=== PATIENT | male | born 1950 | race Caucasian/White ===

== ENCOUNTER → 2017-05-06 | Outpatient (CLI) | payer OTHER, BC | END | disposition home or self-care (01) | LOC: C.RDSM 12:15 | PROVIDERS: ATTEND Orthopaedic Surgery Sports Medicine | DX: R52 Pain, unspecified (principal) ==

== ENCOUNTER → 2017-08-15 | Outpatient (CLI) | payer OTHER, BC ==
--- NOTE | 2017-08-15 11:43 | DIAGNOSTIC IMAGING REPORT ---
LUMBAR SPINE MIN 4 VIEWS CLINICAL HISTORY: 67 years-old Male presenting with LBP. TECHNIQUE: Frontal, bilateral oblique, lateral, and coned in lateral views lumbar spine were obtained. COMPARISON: None. FINDINGS: Normal lumbar lordosis. Vertebral bodies maintain normal height and alignment. Mild intervertebral disc height loss at L5-S1. Mild multilevel degenerative changes. No radiographic evidence of compression deformity or subluxation. Stent projects over the upper abdomen. Nonobstructive bowel gas pattern. IMPRESSION: Mild multilevel degenerative changes. No radiographic evidence of acute osseous injury. Electronically signed by: Noman Walton M.D. 08/15/2017 11:41 AM Dictated Date/Time: 08/15/2017 11:40 AM
== END | disposition home or self-care (01) ==
LOC: C.RDSM 15:47
PROVIDERS: ATTEND Family Medicine
DX: M54.5 Low back pain (principal)

== ENCOUNTER → 2017-11-16 | Day surgery (SDC) | payer OTHER, BC ==
[2017-10-11 08:55] VITALS: Ht 180.3 cm; Wt 65.9 kg
[~2017-11-16] VITALS: Ht 180.3 cm; Wt 65.9 kg
[~2017-11-16] MED LIST: ALPR-411 PO; ASPI81TA28 PO; BUPIVACAINE 0.25% 2.5MG/ML PF 10 ML VIAL ONE; BUPR-83 PO; CETI10TA84 PO; CLOP1TAB54 PO; CZR25 PO; FLUT1AER5 INH; FLUT50SP45 NAE; GABA-113 PO; LIDOCAINE HCL 1% MPF 5 ML VIAL ONE; MIDODRINE PO; PANT40TA PO; RANI150T85 PO; SNG10 PO; TRML160 TOP; VNTHFA/IN INH; ZOLE5INJ IV
--- NOTE | 2017-11-16 14:01 | History & Physical Bridge - SC ---
H&P Re-Evaluation Bridge Note: I have examined the patient, reviewed the History & Physical and in the interval since the performance of the History & Physical I have noted the following changes of clinical significance: No changes noted
--- NOTE | 2017-11-16 14:19 | [facility] Post Operative Brief Note ---
Immediate Operative Summary Operative Date Nov 16, 2017. Pre-Operative Diagnosis Chronic low back pain, left foot numbness Post-Operative Diagnosis Chronic low back pain, left foot numbness Procedure(s) Performed Left L5-S1 medial branch block Surgeon Dr. Ruth Ayala [employer] Manager Surgeon(s) None Estimated Blood Loss None Findings Consistent with Post-Op Diagnosis Specimens NA Drains None Anesthesia Type Local Complication(s) none Disposition Disposition:
--- NOTE | 2017-11-16 14:20 | Discharge Instructions ---
Discharge Instructions Date of Service Nov 16, 2017. Visit Reason for Visit: Low Back Pain Discharge Discharge Diagnosis / Problem: Low back pain Discharge Goals Goal(s): Decrease discomfort, Improve function Activity Recommendations Activity Limitations: resume your previous activity Anesthesia . Post Anesthesia Instructions: If you have had General Anesthesia or IV Sedation: * Do not drive today. * Resume driving when surgeon permits. * Do not make important decisions or sign legal documents today. * Call surgeon for: 1. Temperature elevations greater than 101 degrees F. 2. Uncontrollable pain. 3. Excessive bleeding. 4. Persistent nausea and vomiting. 5. Medication intolerance (nausea, vomiting or rash). * For nausea and vomiting use only clear liquids such as: tea, soda, bouillon until nausea subsides, then gradually increase diet as tolerated. * If you have any concerns or questions, call your surgeon's office. If physician is unavailable and it is an emergency, call 911 or go to the nearest emergency room. . Diet Recommendations Recommended Home Diet: resume previous diet Procedures Procedures Performed: Left L5-S1 medial branch block Pending Studies Studies pending at discharge: no Medical Emergencies . Who to Call and When: Medical Emergencies: If at any time you feel your situation is an emergency, please call 911 immediately. . Non-Emergent Contact Non-Emergency issues call your: Specialist . . "Provider Documentation" section prepared by Chele Ayala. .
[2017-11-16 14:21] VITALS: TEMP 36.6
[2017-11-16 14:42] VITALS: BP 118/71; PULSE 84; O2SAT 99
--- NOTE | 2017-11-16 14:49 | OPERATIVE REPORT ---
DATE OF OPERATION: 11/16/2017 PREOPERATIVE DIAGNOSES: Chronic low back pain, suspected L5-S1 facet arthropathy, lumbar spondylosis. POSTOPERATIVE DIAGNOSES: Same. PROCEDURE: Left L5-S1 medial branch blocks. INDICATIONS: The patient is a 67-year-old male that was seen for chronic low back pain. He describes 2 areas of problem, one is pain that he locates with 1 finger the L5-S1 facet on the left side, worse with prolonged sitting and prolong standing and presented today to determine if this is indeed a pain generator at the facet level at that area, which showed some arthritic changes and fluid signal on MRI imaging. PHYSICAL EXAMINATION: Pleasant male seated comfortably. He has no focal weakness. Negative seated straight leg raises and the proximal muscles of the abductor hallucis strength was reduced to 4-/5. CONSENT: Verbal and written consent was obtained from the patient. Risks and benefits were reviewed. Risks include but are not limited to abscess and allergic reaction. He wishes to proceed. DESCRIPTION OF PROCEDURE: The patient was taken back in the special procedures room of the [facility] where he was maintained in a prone position. Backside was cleansed with Betadine x3 and a dry sterile dressing was applied. Fluoroscope was used to identify the left L5 transverse process junction and the left sacral ala. The overlying skin was anesthetized with 2.5 mL of lidocaine 1% with a 25-gauge 1.5-inch needle. A 25-gauge 3.5-inch spinal needle was then directed under fluoroscopic guidance contacting bony targets at each site was then injected with 1 mL of bupivacaine 0.25 at each site. The patient tolerated the procedure well. DISPOSITION: 1. The patient is taken out into the discharge recovery area where he will be discharged home once discharge criteria have been met. 2. Follow up in the [facility] office in 4 weeks' time. The patient has been educated to keep a pain diary for the next 2 days to determine if this makes a difference or an improvement in his symptoms and pain. I attest to the content of the Intraoperative Record and any orders documented therein. Any exception s are noted below.
== END | disposition home or self-care (01) ==
LOC: X.SURG 12:51
PROVIDERS: ATTEND Physical Medicine & Rehabilitation
DX: M54.5 Low back pain (principal); M47.816 Spondylosis without myelopathy or radiculopathy, lumbar region; G89.29 Other chronic pain; R20.0 Anesthesia of skin

== ENCOUNTER → 2018-01-05 | Day surgery (SDC) | payer OTHER, BC ==
[2017-12-23 15:05] VITALS: Ht 180.3 cm; Wt 63.6 kg
[~2018-01-05] VITALS: Ht 180.3 cm; Wt 63.6 kg
[~2018-01-05] MED LIST changes: -BUPIVACAINE 0.25% 2.5MG/ML PF 10 ML VIAL ONE; -GABA-113 PO; +GABA100C13 PO; +GABA400C PO; +IOPAMIDOL INJ 61% 15 ML VIAL ONE; +SODIUM CHLORIDE 0.9% INJ 10 ML VIAL ONE
--- NOTE | 2018-01-05 13:36 | [facility] Post Operative Brief Note ---
Immediate Operative Summary Operative Date Jan 05, 2018. Pre-Operative Diagnosis Left low back pain Right L5 Radicular pain Post-Operative Diagnosis Same Procedure(s) Performed Lumbar Epidural Steroid Injection Surgeon Dr Chele Ayala Inspector And Sorter Surgeon(s) None Estimated Blood Loss 0 Findings Consistent with Post-Op Diagnosis Specimens NA Drains None Anesthesia Type Local Complication(s) none Disposition Accompanied Pt To Recovery: Disposition:
--- NOTE | 2018-01-05 13:37 | Discharge Instructions ---
Discharge Instructions Date of Service Jan 05, 2018. Visit Reason for Visit: Lumbar Radiculopathy Discharge Discharge Diagnosis / Problem: right leg pain Discharge Goals Goal(s): Decrease discomfort, Improve function Medications Stopped Medications Name(s): ASA/PLAVIX STOPPED 1 WEEK AGO Activity Recommendations Activity Limitations: resume your previous activity Anesthesia . Post Anesthesia Instructions: If you have had General Anesthesia or IV Sedation: * Do not drive today. * Resume driving when surgeon permits. * Do not make important decisions or sign legal documents today. * Call surgeon for: 1. Temperature elevations greater than 101 degrees F. 2. Uncontrollable pain. 3. Excessive bleeding. 4. Persistent nausea and vomiting. 5. Medication intolerance (nausea, vomiting or rash). * For nausea and vomiting use only clear liquids such as: tea, soda, bouillon until nausea subsides, then gradually increase diet as tolerated. * If you have any concerns or questions, call your surgeon's office. If physician is unavailable and it is an emergency, call 911 or go to the nearest emergency room. . Diet Recommendations Recommended Home Diet: resume previous diet Procedures Procedures Performed: Lumbar Epidural Steroid Injection Pending Studies Studies pending at discharge: no Medical Emergencies . Who to Call and When: Medical Emergencies: If at any time you feel your situation is an emergency, please call 911 immediately. . Non-Emergent Contact Non-Emergency issues call your: Specialist . . "Provider Documentation" section prepared by Chele Ayala. .
[2018-01-05 13:41] VITALS: TEMP 37.6
[2018-01-05 13:53] VITALS: BP 157/89; PULSE 93; O2SAT 98
--- NOTE | 2018-01-05 14:42 | OPERATIVE REPORT ---
DATE OF OPERATION: 01/05/2018 PREOPERATIVE DIAGNOSIS: L4-L5 foraminal stenosis with right greater than left lower extremity radiculopathies. POSTOPERATIVE DIAGNOSES: Same. PROCEDURE: Right paramedian L5-S1 intralaminar epidural steroid injection under fluoroscopic guidance. INDICATIONS: The patient is a 67-year-old white male who had medial branch blocks and had relief of the back pain; however, he recently developed a radicular pain down the predominantly right leg. It is felt to be related to multifactorial stenosis at L4-L5. Presents today for an epidural injection to provide him with relief of radicular pain that he notes. PHYSICAL EXAMINATION: Pleasant male seated comfortably. He is without any weakness with the exception of the hip flexor, which is 5-/5 positive seated straight leg raise and intact sensation distally L4-L5-S1 dermatomes. CONSENT: Verbal and written consent was obtained from the patient. Risks and benefits were reviewed. Risks include but are not limited to epidural abscess, epidural hematoma, allergic reaction, dural puncture. The patient wishes to proceed. PROCEDURE: The patient was taken back to the special procedures room of the [facility] where he was maintained in a prone position. Backside was cleansed with Betadine x3 and a dry sterile dressing was applied. Fluoroscope was used to identify the L5-S1 intralaminar space on the right. The L4-L5 space was very tight and narrow. Overlying skin at 5-1 was anesthetized with 4 mL of lidocaine 1% with a 25 gauge 1.5-inch needle. A 22-gauge 3.5-inch Tuohy needle was then directed down towards the intralaminar space. It was advanced under lateral fluoroscopic guidance. Loss of resistance was noted at a depth of 4.5 cm. Isovue-300 contrast 1 mL was injected in which demonstrated an epidural uptake pattern which was confirmed with a lateral view. He then underwent injection after negative aspiration of 40 mg Depo-Medrol, 4 mL of preservative free sodium chloride. Injection was well tolerated. DISPOSITION: The patient is taken out into the discharge recovery area where he will be discharged home once discharge criteria have been met. I attest to the content of the Intraoperative Record and any orders documented therein. Any exception s are noted below.
== END | disposition home or self-care (01) ==
LOC: X.SURG 12:30
PROVIDERS: ATTEND Physical Medicine & Rehabilitation
DX: M48.061 Spinal stenosis, lumbar region without neurogenic claudication (principal); M54.16 Radiculopathy, lumbar region

== ENCOUNTER 2019-08-01 14:08 | Inpatient (IN) ==
[2019-08-01] MEDS ORDERED: DIAZEPAM 5 MG/ML INJ 10ML VIAL IV STA (14:27)
[2019-08-01] MEDS ORDERED: ONDANSETRON INJ 2 MG/ML 2 ML VIAL IV STA (14:27)
[2019-08-01] MEDS ORDERED: SODIUM CHLORIDE 0.9% 500 ML IV SCH (14:30)
[2019-08-01 14:51] LABS: Basophils # (auto) 0.05 K/uL (0-0.2); Basophils % (auto) 0.8 %; Eosinophils # (auto) 0.09 K/uL (0-0.5); Eosinophils % (auto) 1.5 %; Hematocrit (blood only) 41.4 % (42-52); Hemoglobin 13.9 g/dL (14.0-18.0); Immature Granulocytes # (auto) 0.01 K/uL (0.00-0.02); Immature Granulocytes % (auto) 0.2 %; Lymphocytes # (auto) 1.29 K/uL (1.2-3.4); Mean Corpuscular Hemoglobin 29.8 pg (25-34); Mean Corpuscular Hgb Conc 33.6 g/dL (32-36); Mean Corpuscular Volume 88.7 fL (80-100); Mean Platelet Volume 10.1 fL (7.4-10.4); Monocytes # (auto) 0.71 K/uL (0.11-0.59); Monocytes % (auto) 11.6 %; Neutrophils # (auto) 3.98 K/uL (1.4-6.5); Neutrophils % (auto) 64.9 %; Platelet Count 201 K/uL (130-400); RDW Coefficient of Variation 13.8 % (11.5-14.5); RDW Standard Deviation 44.7 fL (36.4-46.3); Red Blood Count 4.67 M/uL (4.7-6.1); White Blood Count 6.13 K/uL (4.8-10.8)
--- NOTE | 2019-08-01 14:52 | XRay Report ---
XR chest 1V portable CLINICAL HISTORY: weakness COMPARISON STUDY: No previous studies for comparison. FINDINGS: The heart is normal in size. There is bilateral reticulonodular shadowing with clustered ri ght upper lung zone nodules measuring 1 cm neck. There is no overt failure. There are no pleural effu sions.[ IMPRESSION: Nonspecific clustered right upper lung zone nodules. In the absence of prior radiographs, CT scanning should be considered in follow-up. Electronically signed by: Ramez Castellanos M.D. 08/01/2019 2:51 PM
[2019-08-01 15:00] LABS: Partial Thromboplastin Time 26.5 Seconds (21.0-31.0); Prothrombin Time 10.6 Seconds (9.0-12.0)
[2019-08-01 15:11] LABS: Albumin Level 3.6 gm/dl (3.4-5.0); BUN Creatinine Ratio 19.6 (10-20); Calcium 9.3 mg/dl (8.5-10.1); Creatinine Clr Calc Pharmacy 61.2 ml/min; Est GFR (African American) 79.6; Est GFR (Non-African American) 68.7; Potassium 3.4 mmol/L (3.5-5.1)
[2019-08-01 15:22] LABS: Bilirubin,Total 0.5 mg/dl (0.2-1); Globulin 3.7 gm/dl (2.5-4.0); Thyroid Stimulating Hormone 4.22 uIu/ml (0.300-4.500); Total Protein 7.3 gm/dl (6.4-8.2)
[2019-08-01 15:56] LABS: iSTAT Creatinine 1.1 mg/dl (0.6-1.3); iSTAT Hemoglobin 13.9 g/dl (14.0-18.0); iSTAT Ionized Calcium 1.12 mmol/l (1.12-1.32); iSTAT Potassium 3.4 mEq/L (3.3-5.0)
[2019-08-01] MEDS ORDERED: OPTIRAY 320 125ml IV PRN ×2 (16:16→16:40)
--- NOTE | 2019-08-01 16:29 | CT Scan Report ---
CT head/brain wo con CT DOSE: HISTORY: Mental status change vertigo TECHNIQUE: Multiaxial CT images of the head were performed without the use of intravenous contrast. A dose lowering technique was utilized adhering to the principles of ALARA. Comparison: None. Findings: The paranasal sinuses and mastoid air cells are clear. The calvarium and skull base are int act. The ventricles and sulci are within normal limits. There is no mass, hematoma, midline shift, or acute infarct. Impression: No acute intracranial abnormality. The above report was generated using voice recognition software. It may contain grammatical, syntax or spelling errors. Electronically signed by: Blanco Addison M.D. 08/01/2019 4:27 PM
--- NOTE | 2019-08-01 16:32 | CT Scan Report ---
CT angio head w con HISTORY: Mental status change vertiogo TECHNIQUE: Multiaxial CT angiography of the head was performed IV contrast: None. Maximum intensit y projection images were also obtained. A dose lowering technique was utilized ad[facility] to the [facility]. COMPARISON: None. FINDINGS: There is no mass, hematoma, midline shift, or acute infarct. Visualized intracranial sports management internship al carotid arteries, distal vertebral arteries, and basilar artery are widely patent. There is no sig nificant stenosis, occlusion, or aneurysm seen within the bilateral ACAs, MCAs, or farm advisor. IMPRESSION: No significant stenosis, occlusion, or aneurysm within the [place]. The above report was generated using voice recognition software. It may contain grammatical, syntax or spelling errors. Electronically signed by: Blanco Addison M.D. 08/01/2019 4:31 PM
--- NOTE | 2019-08-01 16:40 | CT Scan Report ---
NECK CTA HISTORY: vertigo TECHNIQUE: Multiaxial CT images of the neck were performed following the intravenous administration o f contrast to evaluate the major cervical vessels. Maximum intensity projection images were also obta ined. All measurements were calculated based on NASCET criteria. A dose lowering technique was utili zed adhering to the principles of ALARA. COMPARISON STUDY: None. FINDINGS: The aortic arch and proximal great vessels are widely patent. There is no significant sten osis, occlusion, or dissection identified within the bilateral common carotid, internal carotid, or v ertebral arteries. There are similar-appearing heterogeneous nodules inferior to the bilateral thyroi d lobes with the largest on the left measuring 12 mm. The right nodule measures 5 mm. These favor exo phytic thyroid nodules. Parathyroid adenomas could also have a similar appearance. Calcified granulom as within the left upper lobe. Multiple nodular densities within the right upper lobe with the larges t measuring 8 mm. Some of these demonstrate a small amount of calcification. IMPRESSION: 1. No significant stenosis, occlusion, or dissection identified within the carotid or vertebral arter ies. 2. . There are similar-appearing heterogeneous nodules inferior to the bilateral thyroid lobes with t he largest on the left measuring 12 mm. The right nodule measures 5 mm. These favor exophytic thyroid nodules. Parathyroid adenomas could also have a similar appearance. 3. Multiple nodular densities within the right upper lobe with the largest measuring 8 mm. Some of th tonie demonstrate a small amount of calcification. These favor chronic granulomatous disease. However, [address] follow-up recommended to ensure stability. Electronically signed by: Mo Dowling M.D. 08/01/2019 4:39 PM
[2019-08-01 16:49] LABS: Appearance Urine Clear (Clear); Bilirubin Urine Negative (Negative); Blood Urine Negative (Negative); Color Urine Yellow; Glucose Urine UA Negative (Negative); Ketones Urine Trace (Negative); Leukocyte Esterase Urine Negative (Negative); Nitrite Urine Negative (Negative); Protein Urine Negative (Negative); Specific Gravity Urine 1.017 (1.000-1.030); Urobilinogen Urine Negative (Negative); pH Urine 8.5 (4.5-7.5)
[2019-08-01] MEDS ORDERED: MECLIZINE HCL 25 MG TAB PO STA (18:02)
--- NOTE | 2019-08-01 20:07 | Emergency Department Note ---
Entered by Sara Maravilla acting as a scribe for Alex Hernandez DO History of Present Illness General Chief complaint: Dizziness Time Seen by Provider: 08/01/19 14:16 Source: patient History of Present Illness Provider complaint: Dizziness Onset (ago): hour(s) 1 Location: head Radiation: non-radiation Relieved By: + rest Exacerbated By: + movement Associated symptoms: no nausea/vomiting The patient is a 69 year old male who presents to the Emergency Room with complaints of dizziness that began 1 hour ago after a root canal procedure. The patient states the symptoms do not radiate anywhere else on his body. Freddy tionally, the patient states that the symptoms are exacerbated by movement and relieved at rest. The patient denies experiencing any nausea/vomiting. The patient notes that he has never had a stroke, PE, or DVT but does have blood pressure issues. Additionally, the patient mentioned that he took all of his prescribed medications this morning. Home Medications Home Medications Medication Instructions Recorded Confirmed Type Midrin 1 tab PO UD PRN 08/01/19 08/01/19 History albuterol sulfate [Ventolin HFA] 2 puff INHALATION Q4 PRN 08/01/19 08/01/19 History alprazolam [Xanax] 0.5 mg PO BID PRN 08/01/19 08/01/19 History bupropion HCl [Wellbutrin SR] 100 mg PO BID 08/01/19 08/01/19 History cetirizine [Zyrtec] 20 mg PO HS 08/01/19 08/01/19 History dicyclomine 20 mg PO TID 08/01/19 08/01/19 History finasteride [Proscar] 5 mg PO DAILY 08/01/19 08/01/19 History fluticasone propionate [Flonase 2 spray INTRANASAL DAILY 08/01/19 08/01/19 History Allergy Relief] fluticasone propionate [Flovent 1 puff INHALATION BID 08/01/19 08/01/19 History HFA] gabapentin 600 mg PO TID 08/01/19 08/01/19 History losartan [Cozaar] 25 mg PO DAILY 08/01/19 08/01/19 History montelukast [Singulair] 10 mg PO DAILY 08/01/19 08/01/19 History nortriptyline [Pamelor] 30 mg PO HS 08/01/19 08/01/19 History pantoprazole [Protonix] 40 mg PO DAILY 08/01/19 08/01/19 History penicillin V potassium 500 mg PO QID 08/01/19 08/01/19 History ranitidine HCl [Zantac] 150 mg PO BID 08/01/19 08/01/19 History triamcinolone acetonide 1 applic TOPICAL BID PRN 08/01/19 08/01/19 History zoledronic jbqg-[id number]-kjufj 0 mg IV YEARLY 08/01/19 08/01/19 History [Reclast] Allergies Allergy/AdvReac Type Severity Reaction Status Date / Time cyclobenzaprine Allergy Unknown COULD NOT Verified 08/01/19 15:10 URINATE amoxicillin AdvReac Unknown CAUSED Verified 08/01/19 15:10 C-DIFF atenolol AdvReac Unknown GI UPSET Verified 08/01/19 15:10 citalopram AdvReac Unknown GI UPSET Verified 08/01/19 15:10 clavulanic acid AdvReac Unknown CAUSED Verified 08/01/19 15:10 C-DIFF doxycycline AdvReac Unknown GI UPSET Verified 08/01/19 15:10 levofloxacin AdvReac Unknown GI UPSET Verified 08/01/19 15:10 lisinopril AdvReac Unknown COUGH Verified 08/01/19 15:10 trazodone AdvReac Unknown GI UPSET Verified 08/01/19 15:10 Past Med/Surg History Medical History Chronic tension headache (Chronic) 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 difficile colitis (Resolved) Thyroid tumor, benign (Chronic) Herniated disc (Chronic) Anxiety (Chronic) Urticarial dermatitis (Chronic) Hypertension (Chronic) Osteoporosis (Chronic) Barretts esophagus (Chronic) Chronic abdominal pain (Chronic) Family History Son Trigeminal neuralgia Social History Feels Safe at Home: Yes Smoking Status: Former smoker Hx Alcohol Use: No Review of Systems See HPI for pertinent positives & negatives. and A total of 10 systems reviewed and were otherwise negative Physical Exam Vital Signs Vital Signs - 24 hr 08/01/19 14:24 08/01/19 15:18 08/01/19 16:00 Temperature 36.6 C Temperature Source Oral Sepsis Recent Fever Within 48 Hours No Sepsis New/Unexplained Change in Mental Status No Sepsis Action Taken by Nursing No Action Required Pulse Rate 84 Pulse Rate [Finger] Respiratory Rate 20 Blood Pressure 154/90 H Blood Pressure [Right Arm] Blood Pressure Mean 111 Blood Pressure Mean [Right Arm] Pulse Oximetry 100 97 97 Oxygen Delivery Method Room Air Room Air Room Air 08/01/19 17:00 08/01/19 19:49 Temperature Temperature Source Sepsis Recent Fever Within 48 Hours Sepsis New/Unexplained Change in Mental Status Sepsis Action Taken by Nursing Pulse Rate Pulse Rate [Finger] 84 89 Respiratory Rate 17 17 Blood Pressure Blood Pressure [Right Arm] 175/99 H 168/99 H Blood Pressure Mean Blood Pressure Mean [Right Arm] 124 122 Pulse Oximetry 98 97 Oxygen Delivery Method Room Air Room Air GENERAL: Patient is awake, alert, and in no acute distress. Patient is resting comfortably and showing signs of anxiety. Patient is also resistant to opening his eyes. EYES: The conjunctivae are clear. The pupils are round and reactive. EARS, NOSE, MOUTH AND THROAT: The nose is without any evidence of any deformity. Mucous membranes are moist.Tongue is midline NECK: The neck is nontender and supple. RESPIRATORY: Normal respiratory effort is noted. There is no evidence of wheezing rhonchi or rales to auscultation. CARDIOVASCULAR: Regular rate and rhythm noted. There no murmurs rubs or gallops normal S1 normal S2 GASTROINTESTINAL: The abdomen is soft. Bowel sounds are present in all quadrants. Abdomen is nontender. MUSCULOSKELETAL/EXTREMITIES: There is no evidence of gross deformity. Full range of motion is noted in the hips and shoulders. SKIN: There is no obvious evidence of any rash. There are no petechiae, pallor or cyanosis noted. NEUROLOGIC: Patient is awake alert and oriented x3. Strength is symmetric. Patellar reflexes are 2+ bilaterally. Course 1423: Past medical records reviewed. The patient was evaluated in room A04B. A complete history and physical exam was performed. 1729: I spoke to Tameka Rangel about the patient's case and Dr. Vásquez will accept the patient for further evaluation. Administered Medications Ioversol (Optiray 320 125ml) 119 ml IV ONCE PRN PRN Reason: Interaction Checking Stop: 08/05/19 16:15 Last Admin: 08/01/19 16:17 Dose: 119 ml Documented by: [id number] Ioversol (Optiray 320 125ml) 119 ml IV ONCE PRN PRN Reason: Interaction Checking Stop: 08/05/19 16:39 Last Admin: 08/01/19 16:41 Dose: 119 ml Documented by: [id number] Discontinued Medications Diazepam (Valium) 2.5 mg IV NOW STA Stop: 08/01/19 14:28 Last Admin: 08/01/19 15:17 Dose: 2.5 mg Documented by: [id number] Sodium Chloride (Nss) 500 mls @ 999 mls/hr IV .Q31M ELIEZER Stop: 08/01/19 15:00 Last Infusion: 08/01/19 16:00 Dose: 0 mls/hr Documented by: [id number] Admin: 08/01/19 15:16 Dose: 999 mls/hr Documented by: [id number] Meclizine HCl (Antivert) 25 mg PO NOW STA Stop: 08/01/19 18:03 Last Admin: 08/01/19 18:16 Dose: 25 mg Documented by: [id number] Ondansetron HCl (Zofran) 4 mg IV NOW STA Stop: 08/01/19 14:28 Last Admin: 08/01/19 15:17 Dose: 4 mg Documented by: [id number] Medical Decision Making Differential Diagnosis Differential diagnosis: Etiologies such as benign positional vertigo, labrynthitis, dehydration, hypovolemia, anemia, tumor, infection, hypoglycemia, electrolyte abnormalities, cardiac sources, toxicological sources, central neurologic process, as well as others were entertained. Medical Records Attestation: I reviewed the patient's medical records. Home Medications Current Medication List: was personally reviewed by me Laboratory Data Attestation: I reviewed the patient's lab results. Result diagrams: 08/01/19 14:34 08/01/19 14:34 Lab Results 08/01/19 08/01/19 08/01/19 Range/Units 14:34 14:34 14:34 WBC 6.13 (4.8-10.8) K/uL RBC 4.67 L (4.7-6.1) M/uL Hgb 13.9 L (14.0-18.0) g/dL POC Hgb (14.0-18.0) g/dl Hct 41.4 L (42-52) % POC Hct (42-52) % MCV 88.7 (80-100) fL MCH 29.8 (25-34) pg MCHC 33.6 (32-36) g/dL RDW Std Deviation 44.7 (36.4-46.3) fL RDW Coeff of Leydi 13.8 (11.5-14.5) % Plt Count 201 (130-400) K/uL MPV 10.1 (7.4-10.4) fL Immature Gran % (Auto) 0.2 % Neut % (Auto) 64.9 % Lymph % (Auto) 21.0 % [place] % (Auto) 11.6 % Eos % (Auto) 1.5 % Baso % (Auto) 0.8 % Immature Gran # (Auto) 0.01 (0.00-0.02) K/uL Neut # (Auto) 3.98 (1.4-6.5) K/uL Lymph # (Auto) 1.29 (1.2-3.4) K/uL [place] # (Auto) 0.71 H (0.11-0.59) K/uL Eos # (Auto) 0.09 (0-0.5) K/uL Baso # (Auto) 0.05 (0-0.2) K/uL PT 10.6 (9.0-12.0) Seconds INR 1.0 (0.9-1.1) APTT 26.5 (21.0-31.0) Seconds PTT Ratio 1.0 POC Sodium (135-144) mEq/L Sodium 138 (136-145) mmol/L POC Potassium (3.3-5.0) mEq/L Potassium 3.4 L (3.5-5.1) mmol/L POC Chloride (101-112) mEq/L Chloride 106 (98-107) mmol/L Carbon Dioxide 25 (21-32) mmol/L POC Total CO2 (24-31) mEq/l Anion Gap 7.0 (3-11) POC Anion Gap (16-25) mmol/L POC BUN (7-18) mg/dl BUN 21 H (7-18) mg/dl Creatinine 1.08 (0.6-1.4) mg/dl POC Creatinine (0.6-1.3) mg/dl Est Cr Clr Drug Dosing 61.2 ml/min Est GFR ( Amer) 79.6 Est GFR (Non-Af Amer) 68.7 BUN/Creatinine Ratio 19.6 (10-20) Glucose 109 H (70-99) mg/dl POC Glucose (other) (70-99) mg/dl Calcium 9.3 (8.5-10.1) mg/dl POC Ioniz Calcium Talisha (1.12-1.32) mmol/l Magnesium 2.0 (1.8-2.4) mg/dl Total Bilirubin 0.5 (0.2-1) mg/dl AST 18 (15-37) U/L ALT 22 (12-78) U/L Alkaline Phosphatase 80 (45-117) U/L Troponin I (0-0.045) ng/ml Total Protein 7.3 (6.4-8.2) gm/dl Albumin 3.6 (3.4-5.0) gm/dl Globulin 3.7 (2.5-4.0) gm/dl Albumin/Globulin Ratio 1.0 (0.9-2) TSH 4.220 (0.300-4.500) uIu/ml Urine Color Urine Appearance (Clear) Urine pH (4.5-7.5) Ur Specific [place] (1.000-1.030) Urine Protein (Negative) Urine Glucose (UA) (Negative) Urine Ketones (Negative) Urine Blood (Negative) Urine Nitrite (Negative) Urine Bilirubin (Negative) Urine Urobilinogen (Negative) Ur Leukocyte Esterase (Negative) 08/01/19 08/01/19 08/01/19 Range/Units 14:34 14:45 16:36 WBC (4.8-10.8) K/uL RBC (4.7-6.1) M/uL Hgb (14.0-18.0) g/dL POC Hgb 13.9 L (14.0-18.0) g/dl Hct (42-52) % POC Hct 41 L (42-52) % MCV (80-100) fL MCH (25-34) pg MCHC (32-36) g/dL RDW Std Deviation (36.4-46.3) fL RDW Coeff of Leydi (11.5-14.5) % Plt Count (130-400) K/uL MPV (7.4-10.4) fL Immature Gran % (Auto) % Neut % (Auto) % Lymph % (Auto) % [place] % (Auto) % Eos % (Auto) % Baso % (Auto) % Immature Gran # (Auto) (0.00-0.02) K/uL Neut # (Auto) (1.4-6.5) K/uL Lymph # (Auto) (1.2-3.4) K/uL [place] # (Auto) (0.11-0.59) K/uL Eos # (Auto) (0-0.5) K/uL Baso # (Auto) (0-0.2) K/uL PT (9.0-12.0) Seconds INR (0.9-1.1) APTT (21.0-31.0) Seconds PTT Ratio POC Sodium 139 (135-144) mEq/L Sodium (136-145) mmol/L POC Potassium 3.4 (3.3-5.0) mEq/L Potassium (3.5-5.1) mmol/L POC Chloride 103 (101-112) mEq/L Chloride (98-107) mmol/L Carbon Dioxide (21-32) mmol/L POC Total CO2 24 (24-31) mEq/l Anion Gap (3-11) POC Anion Gap 17.0 (16-25) mmol/L POC BUN 21 H (7-18) mg/dl BUN (7-18) mg/dl Creatinine (0.6-1.4) mg/dl POC Creatinine 1.1 (0.6-1.3) mg/dl Est Cr Clr Drug Dosing ml/min Est GFR ( Amer) Est GFR (Non-Af Amer) BUN/Creatinine Ratio (10-20) Glucose (70-99) mg/dl POC Glucose (other) 110 H (70-99) mg/dl Calcium (8.5-10.1) mg/dl POC Ioniz Calcium Talisha 1.12 (1.12-1.32) mmol/l Magnesium (1.8-2.4) mg/dl Total Bilirubin (0.2-1) mg/dl AST (15-37) U/L ALT (12-78) U/L Alkaline Phosphatase (45-117) U/L Troponin I < 0.015 (0-0.045) ng/ml Total Protein (6.4-8.2) gm/dl Albumin (3.4-5.0) gm/dl Globulin (2.5-4.0) gm/dl Albumin/Globulin Ratio (0.9-2) TSH (0.300-4.500) uIu/ml Urine Color Yellow Urine Appearance Clear (Clear) Urine pH 8.5 H (4.5-7.5) Ur Specific [place] 1.017 (1.000-1.030) Urine Protein Negative (Negative) Urine Glucose (UA) Negative (Negative) Urine Ketones Trace H (Negative) Urine Blood Negative (Negative) Urine Nitrite Negative (Negative) Urine Bilirubin Negative (Negative) Urine Urobilinogen Negative (Negative) Ur Leukocyte Esterase Negative (Negative) Imaging Data Radiologist's Impression: Radiology results as stated below per my review and the radiologist's interpretation: XR chest 1V portable CLINICAL HISTORY: weakness COMPARISON STUDY: No previous studies for comparison. FINDINGS: The heart is normal in size. There is bilateral reticulonodular shadowing with clustered right upper lung zone nodules measuring 1 cm neck. There is no overt failure. There are no pleural effusions.[ IMPRESSION: Nonspecific clustered right upper lung zone nodules. In the absence of prior radiographs, CT scanning should be considered in follow-up. Electronically signed by: Ramez Castellanos M.D. 08/01/2019 2:51 PM NECK CTA HISTORY: vertigo TECHNIQUE: Multiaxial CT images of the neck were performed following the intravenous administration of contrast to evaluate the major cervical vessels. Maximum intensity projection images were also obtained. All measurements were calculated based on NASCET criteria. A dose lowering technique was utilized adhering to the principles of ALARA. COMPARISON STUDY: None. FINDINGS: The aortic arch and proximal great vessels are widely patent. There is no significant stenosis, occlusion, or dissection identified within the bilateral common carotid, internal carotid, or vertebral arteries. There are similar-appearing heterogeneous nodules inferior to the bilateral thyroid lobes with the largest on the left measuring 12 mm. The right nodule measures 5 mm. These favor exophytic thyroid nodules. Parathyroid adenomas could also have a similar appearance. Calcified granulomas within the left upper lobe. Multiple nodular densities within the right upper lobe with the largest measuring 8 mm. Some of these demonstrate a small amount of calcification. IMPRESSION: 1. No significant stenosis, occlusion, or dissection identified within the carotid or vertebral arteries. 2. . There are similar-appearing heterogeneous nodules inferior to the bilateral thyroid lobes with the largest on the left measuring 12 mm. The right nodule measures 5 mm. These favor exophytic thyroid nodules. Parathyroid adenomas could also have a similar appearance. 3. Multiple nodular densities within the right upper lobe with the largest measuring 8 mm. Some of these demonstrate a small amount of calcification. These favor chronic granulomatous disease. However, [address] follow-up recommended to ensure stability. Electronically signed by: Mo Dowling M.D. 08/01/2019 4:[address] head/brain wo con CT DOSE: HISTORY: Mental status change vertigo TECHNIQUE: Multiaxial CT images of the head were performed without the use of intravenous contrast. A dose lowering technique was utilized adhering to the principles of ALARA. Comparison: None. Findings: The paranasal sinuses and mastoid air cells are clear. The calvarium and skull base are intact. The ventricles and sulci are within normal limits. There is no mass, hematoma, midline shift, or acute infarct. Impression: No acute intracranial abnormality. The above report was generated using voice recognition software. It may contain grammatical, syntax or spelling errors. Electronically signed by: Blanco Addison M.D. 08/01/2019 4:[address] angio head w con HISTORY: Mental status change vertiogo TECHNIQUE: Multiaxial CT angiography of the head was performed IV contrast: None. Maximum intensity projection images were also obtained. A dose lowering technique was utilized adhering to the principles of ALARA. COMPARISON: None. FINDINGS: There is no mass, hematoma, midline shift, or acute infarct. Visualized intracranial internal carotid arteries, distal vertebral arteries, and basilar artery are widely patent. There is no significant stenosis, occ lusion, or aneurysm seen within the bilateral ACAs, MCAs, or maintenance department manager. IMPRESSION: No significant stenosis, occlusion, or aneurysm within the unga of [place]. The above report was generated using voice recognition software. It may contain grammatical, syntax or spelling errors. Electronically signed by: Blanco Addison M.D. 08/01/2019 4:31 PM ECG Data Attestation: I personally reviewed and interpreted this ECG as follows: Indication: other (Dizziness) Rate (beats per minute): 85 Rhythm: normal sinus ECG ST segments: Normal ST segments ECG Findings: PVCs Comparison ECG Date: no prior available Blood Pressure Blood Pressure Findings: Elevated blood pressure Blood Pressure Disposition: further management by hospitalist CHAVA Narrative The patient is a 69-year-old male who presented to the emergency department for an evaluation of vertigo. The patient had very severe vertigo with only the slightest of head movement. Given the patient's age and comorbidities a central nervous system lesion was initially ruled out. I discussed the patient's laboratory and radiographic studies with him. He was treated with antiemetics as well as medications for vertigo. He continued to have very severe symptoms. Given the degree of his symptomatology I discussed his case with the on-call [facility] hospitalist group. They have agreed to evaluate the patient in the emergency department for further management disposition. The patient was reevaluated multiple times. Nursing attempted to help the patient ambulate but he had very severe problems doing this. Impression & Plan Vertigo Discharge Plan Visit Data Chief Complaint: Dizziness ED Provider: Alex Hernandez Discharge Problem: Vertigo Forms Stand Alone Forms: My [facility] Prescriptions Prescriptions: No Action gabapentin 600 mg tablet 600 mg PO TID RF: 0 cetirizine [Zyrtec] 10 mg Tablet 20 mg PO HS RF: 0 penicillin V potassium 500 mg tablet 500 mg PO QID RF: 0 triamcinolone acetonide 0.1 % cream 1 applic topical BID PRN (Reason: FLARE UPS) RF: 0 bupropion HCl [Wellbutrin SR] 100 mg tablet sustained-release 12 hr 100 mg PO BID RF: 0 dicyclomine 20 mg tablet 20 mg PO TID RF: 0 pantoprazole [Protonix] 40 mg tablet,delayed release (DR/EC) 40 mg PO DAILY RF: 0 ranitidine HCl [Zantac] 150 mg tablet 150 mg PO BID RF: 0 losartan [Cozaar] 25 mg tablet 25 mg PO DAILY RF: 0 montelukast [Singulair] 10 mg tablet 10 mg PO DAILY RF: 0 albuterol sulfate [Ventolin HFA] 90 mcg/actuation HFA aerosol inhaler 2 puff inhalation Q4 PRN (Reason: Shortness Of Breath Or Wheezing) RF: 0 fluticasone propionate [Flonase Allergy Relief] 50 mcg/actuation [place],Suspension 2 spray INTRANASAL DAILY RF: 0 finasteride [Proscar] 5 mg tablet 5 mg PO DAILY RF: 0 Midrin 1 tab PO UD PRN (Reason: Headache) RF: 0 nortriptyline [Pamelor] 10 mg capsule 30 mg PO HS RF: 0 zoledronic [id number] [Reclast] 5 mg/100 mL Piggyback IV YEARLY RF: 0 alprazolam [Xanax] 0.5 mg tablet 0.5 mg PO BID PRN (Reason: Anxiety) RF: 0 Flovent HFA 110 mcg/actuation Hfa Aerosol Inhaler 1 puff INHALATION BID RF: 0 The scribe's documentation has been prepared under my direction and personally reviewed by me in its entirety. I confirm that the note above accurately reflects all work, treatment, procedures, and medical decision making performed by me.
--- NOTE | 2019-08-01 20:12 | History & Physical Report ---
Date of Service August 01, 2019 Assessment & Plan (1) Vertigo: -Admit to [facility] [place] with telemetry -Patient presenting with sudden onset of dizziness after having dental procedure performed today -In the ED, head CT, head CTA, neck CTA all negative for acute neurological findings -Symptoms seem to be secondary to BPPV -Continue supportive care with IVF, PRN meclizine -PT consult for Aly maneuver -Consider brain MRI if symptoms do not improve (2) Pulmonary nodules: -Incidental finding on neck CTA -Will need outpatient follow-up chest CT in 6 months (3) Thyroid nodule: -Incidental finding on neck CTA -Noted to have bilateral thyroid lobe nodules -History of left thyroid nodule in 2011, S/P biopsy showing benign nodular goiter -TSH 4.2 -Outpatient follow-up (4) Bronchiectasis: -Stable, no signs of acute exacerbation -Continue home inhalers (5) Hypertension: -BP stable, continue losartan (6) Anxiety: -Continue home meds (7) DVT prophylaxis: -SQ Lovenox History of Present Illness Chief Complaint: Dizziness Primary Care Provider: Quentin Best MD 69-year-old male who presents the ED for evaluation of dizziness. Patient was at the dentist office today having a root canal performed and when he sat up in the chair after the procedure, he had sudden onset of severe dizziness and lightheadedness. No syncopal event. He had associated nausea but no vomiting. EMS was called and patient was brought to the ED for further evaluation. Patient reports an associated headache however reports history of chronic headaches. No blurred vision or double vision. Denies any unilateral weakness, numbness, tingling. Reports he otherwise has been feeling well recently. No chest pain or shortness of breath. Denies abdominal pain and diarrhea. No other recent illnesses, fevers, chills. He denies any urinary symptoms. In the ED, head CT, head CTA, neck CTA were all negative for acute findings. Labs are unremarkable. Patient was given IVF, IV Zofran, IV diazepam and continues to have persistent symptoms. Allergies Allergy/AdvReac Type Severity Reaction Status Date / Time cyclobenzaprine Allergy Unknown COULD NOT Verified 08/01/19 15:10 URINATE amoxicillin AdvReac Unknown CAUSED Verified 08/01/19 15:10 C-DIFF atenolol AdvReac Unknown GI UPSET Verified 08/01/19 15:10 citalopram AdvReac Unknown GI UPSET Verified 08/01/19 15:10 clavulanic acid AdvReac Unknown CAUSED Verified 08/01/19 15:10 C-DIFF doxycycline AdvReac Unknown GI UPSET Verified 08/01/19 15:10 levofloxacin AdvReac Unknown GI UPSET Verified 08/01/19 15:10 lisinopril AdvReac Unknown COUGH Verified 08/01/19 15:10 trazodone AdvReac Unknown GI UPSET Verified 08/01/19 15:10 Home Medications Home Medications Medication Instructions Recorded Confirmed Type Midrin 1 tab PO UD PRN 08/01/19 08/01/19 History albuterol sulfate [Ventolin HFA] 2 puff INHALATION Q4 PRN 08/01/19 08/01/19 History alprazolam [Xanax] 0.5 mg PO BID PRN 08/01/19 08/01/19 History bupropion HCl [Wellbutrin SR] 100 mg PO BID 08/01/19 08/01/19 History cetirizine [Zyrtec] 20 mg PO HS 08/01/19 08/01/19 History dicyclomine 20 mg PO TID 08/01/19 08/01/19 History finasteride [Proscar] 5 mg PO DAILY 08/01/19 08/01/19 History fluticasone propionate [Flonase 2 spray INTRANASAL DAILY 08/01/19 08/01/19 History Allergy Relief] fluticasone propionate [Flovent 1 puff INHALATION BID 08/01/19 08/01/19 History HFA] gabapentin 600 mg PO TID 08/01/19 08/01/19 History losartan [Cozaar] 25 mg PO DAILY 08/01/19 08/01/19 History montelukast [Singulair] 10 mg PO DAILY 08/01/19 08/01/19 History nortriptyline [Pamelor] 30 mg PO HS 08/01/19 08/01/19 History pantoprazole [Protonix] 40 mg PO DAILY 08/01/19 08/01/19 History penicillin V potassium 500 mg PO QID 08/01/19 08/01/19 History ranitidine HCl [Zantac] 150 mg PO BID 08/01/19 08/01/19 History triamcinolone acetonide 1 applic TOPICAL BID PRN 08/01/19 08/01/19 History zoledronic [id number] 0 mg IV YEARLY 08/01/19 08/01/19 History [Reclast] Past Med/Surg History Medical History Chronic tension headache (Chronic) 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 difficile colitis (Resolved) Thyroid tumor, benign (Chronic) Herniated disc (Chronic) Anxiety (Chronic) Urticarial dermatitis (Chronic) Hypertension (Chronic) Osteoporosis (Chronic) Barretts esophagus (Chronic) Chronic abdominal pain (Chronic) Family History Son Trigeminal neuralgia Social History Feels Safe at Home: Yes Smoking Status: Former smoker Hx Alcohol Use: No Review of Systems Review of Systems: ROS per HPI, all other systems reviewed and negative Physical Exam Constitutional: WD/WN, vitals as above Eyes: PERRL, conjunctivae normal, anicteric sclerae ENMT: external ear and nose normal, oropharynx normal Respiratory: normal respiratory effort, lungs clear to auscultation Cardiovascular: Rate/Rhythm: regular rate and regular rhythm Vessels: normal peripheral pulses Extremities: no edema Gastrointestinal (Abdomen): normal bowel sounds, soft, nontender, no hepatosplenomegaly Musculoskeletal: no cyanosis or clubbing, extremities motor strength 5/5 Skin: no rashes, warm and dry Neurologic: PERRL, EOMI, accommodation nl, no face palsy, no dysarthria Cranial Nerves: no nystagmus Psychiatric: Orientation: alert and oriented x 3 Affect: + anxious affect Results & Data Vital Signs (Past 12 Hours) Vital Signs Temp Pulse Pulse Resp BP BP Pulse Ox 08/01/19 19:49 89 17 168/99 H 97 08/01/19 17:00 84 17 175/99 H 98 08/01/19 16:00 97 08/01/19 15:18 97 08/01/19 14:24 36.6 C 84 20 154/90 H 100 Laboratory Results Short CBC 08/01/19 Range/Units 14:34 WBC 6.13 (4.8-10.8) K/uL Hgb 13.9 L (14.0-18.0) g/dL Hct 41.4 L (42-52) % Plt Count 201 (130-400) K/uL BMP 08/01/19 14:34 Sodium 138 Potassium 3.4 L Chloride 106 Carbon Dioxide 25 BUN 21 H Creatinine 1.08 Glucose 109 H Calcium 9.3 Cardiac Enzymes 08/01/19 Range/Units 14:34 Troponin I < 0.015 (0-0.045) ng/ml Liver Function 08/01/19 Range/Units 14:34 Total Bilirubin 0.5 (0.2-1) mg/dl AST 18 (15-37) U/L ALT 22 (12-78) U/L Alkaline Phosphatase 80 (45-117) U/L Albumin 3.6 (3.4-5.0) gm/dl Urine 08/01/19 Range/Units 16:36 Urine Color Yellow Urine Appearance Clear (Clear) Urine pH 8.5 H (4.5-7.5) Ur Specific [place] 1.017 (1.000-1.030) Urine Protein Negative (Negative) Urine Glucose (UA) Negative (Negative) Diagnostic Findings CXR IMPRESSION: Nonspecific clustered right upper lung zone nodules. In the absence of prior radiographs, CT scanning should be considered in follow-up Head CT Impression: No acute intracranial abnormality. HEAD CTA IMPRESSION: No significant stenosis, occlusion, or aneurysm within the [place]. NECK CTA IMPRESSION: 1. No significant stenosis, occlusion, or dissection identified within the carotid or vertebral arteries. 2. . There are similar-appearing heterogeneous nodules inferior to the bilateral thyroid lobes with the largest on the left measuring 12 mm. The right nodule measures 5 mm. These favor exophytic thyroid nodules. Parathyroid adenomas could also have a similar appearance. 3. Multiple nodular densities within the right upper lobe with the largest measuring 8 mm. Some of these demonstrate a small amount of calcification. These favor chronic granulomatous disease. However, [address] follow-up recommended to ensure stability. Code Status & VTE Plan VTE Prophylaxis Plan VTE Prophylaxis will be ordered: Yes Supervising Physician Co-Signing Physician Notes I have seen and examined the patient with nurse practitioner and agree with the assessment and plan as above and would like to comment that This is a patient who came to emergency room after dental procedure and as per patient he was given Lidocaine and since the dental visit has been experiencing dizziness/vertigo symptoms and also history of headaches and patient cannot tell if he has been having typical headaches incidentally or worse with recent vertigo and possibly associations with Lidocaine. Patient also noted to have elevated blood pressure and with underlying hypertension versus exacerbation of blood pressures from lidocaine or from discomfort. When seen in the emergency room patient was laying flat on his back and trying not to move very much because of discomfort of the head. At this time would continue supportive care as hospital observation and hopefully when patient can get some sleep and further removed from time of lidocaine from dentist that the symptoms may improve. pulmonary nodule - There is bilateral reticulonodular shadowing with clustered right upper lung zone nodules measuring 1 cm neck. There is no overt failure. There are no pleural effusions Nonspecific clustered right upper lung zone nodules. In the absence of prior radiographs, CT scanning should be considered in follow-up thyroid nodule - There are similar-appearing heterogeneous nodules inferior to the bilateral thyroid lobes with the largest on the left measuring 12 mm. The right nodule measures 5 mm. These favor exophytic thyroid nodules. Parathyroid adenomas could also have a similar appearance. will need outpatient follow up On physical exam General: patient was laying flat on his back and trying not to move very much because of discomfort of the head. HEENT: normal eyes, ears, nose, throat Lungs: clear to auscultation bilaterally Heart: regular rate Abdomen: soft, nontender, positive bowel sounds Extremities: no edema Psych/Neuro: awake and alert and oriented, answers questions appropriately My colleague Dr. Alex will be following the patient as hospitalist physician starting on 08/02/19
[2019-08-01] MEDS ORDERED: ACETAMINOPHEN 325 MG TAB PO PRN (21:05)
[2019-08-01] MEDS ORDERED: ALPRAZolam 0.5 MG TABLET PO PRN (21:05)
[2019-08-01] MEDS: DICYCLOMINE HCL 20 MG TAB PO SCH (22:02)
[2019-08-01] MEDS: GABAPENTIN 600 MG TAB PO SCH (22:03)
[2019-08-01] MEDS: NORTRIPTYLINE HCL 10 MG CAP PO SCH (22:04)
[2019-08-01] MEDS: BuPROPion SR 100 MG TABCR PO SCH (22:04)
[2019-08-01] MEDS: ENOXAPARIN INJ 40 MG/0.4 ML SYR SQ SCH (22:06)
[2019-08-01] MEDS: SODIUM CHLORIDE 0.9% 1000ML 1,000 ML IV SCH (22:06)
[2019-08-01] MEDS: FLUTICASONE HFA 110MCG INHALER INH SCH (22:07)
[2019-08-01] MEDS: CETIRIZINE HCL 10 MG TABLET PO SCH (22:07)
[2019-08-02] MEDS: MECLIZINE HCL 25 MG TAB PO PRN (01:51)
[2019-08-02] MEDS: PROMETHAZINE HCL 12.5 MG in SODIUM CHLORIDE 0.9% 50 ML IV PRN ×4 (02:00→22:38)
[2019-08-02 05:41] LABS: Hematocrit (blood only) 42.3 % (42-52); Mean Corpuscular Hemoglobin 29.2 pg (25-34); Mean Corpuscular Hgb Conc 33.1 g/dL (32-36); Mean Corpuscular Volume 88.3 fL (80-100); Mean Platelet Volume 10.3 fL (7.4-10.4); Platelet Count 213 K/uL (130-400); RDW Coefficient of Variation 13.5 % (11.5-14.5); RDW Standard Deviation 43.8 fL (36.4-46.3); Red Blood Count 4.79 M/uL (4.7-6.1); White Blood Count 8.02 K/uL (4.8-10.8)
[2019-08-02] MEDS: SODIUM CHLORIDE 0.9% 1000ML 1,000 ML IV SCH ×2 (06:01→15:48)
[2019-08-02] MEDS ORDERED: KETOROLAC TROMETHAMINE 15 MG/ML VIAL IV ONE (06:12)
[2019-08-02 06:14] LABS: BUN Creatinine Ratio 17.8 (10-20); Calcium 8.5 mg/dl (8.5-10.1); Creatinine Clr Calc Pharmacy 73.8 ml/min; Est GFR (African American) 101.6; Est GFR (Non-African American) 87.7; Potassium 3.7 mmol/L (3.5-5.1)
[2019-08-02] MEDS ORDERED: MoRPHine SULFATE 4 MG/ML 1 ML CARP\\VIAL IV STA (06:14)
[2019-08-02] MEDS: BuPROPion SR 100 MG TABCR PO SCH ×3 (08:27→23:13)
[2019-08-02] MEDS: PANTOprazole 40 MG TAB PO SCH (08:27)
[2019-08-02] MEDS: FLUTICASONE HFA 110MCG INHALER INH SCH ×2 (08:27→20:44)
[2019-08-02] MEDS: GABAPENTIN 600 MG TAB PO SCH ×3 (08:27→20:45)
[2019-08-02] MEDS: FINASTERIDE 5 MG TAB PO SCH (08:27)
[2019-08-02] MEDS: DICYCLOMINE HCL 20 MG TAB PO SCH ×4 (08:28→23:13)
[2019-08-02] MEDS: MONTELUKAST SODIUM 10 MG TABLET PO SCH (08:28)
[2019-08-02] MEDS ORDERED: LOSARTAN POTASSIUM 25 MG TAB PO SCH (09:00)
--- NOTE | 2019-08-02 09:11 | Hospitalist Progress Note ---
Date of Service August 02, 2019 Assessment & Plan (1) Vertigo: Sudden onset after dental procedure Head CT, head CTA, neck CTA all negative for acute neurological findings Differentials include BPPV, ?vestibular migraine Continue supportive care with IVF, PRN meclizine, antiemetics PT consult for Aly maneuver Will onsider brain MRI and ENT/Neuro consult if symptoms do not improve (2) Pulmonary nodules: Incidental finding on neck CTA Will need outpatient follow-up chest CT in 6 months (3) Thyroid nodule: Incidental finding on neck CTA History of left thyroid nodule in 2011, S/P biopsy showing benign nodular goiter TSH 4.2 Outpatient follow-up (4) Bronchiectasis: Stable No acute exacerbation Continue home inhalers (5) Hypertension: BP stable Continue home med losartan (6) Anxiety: Continue home meds (7) DVT prophylaxis: SQ Lovenox Subjective Patient seen and evaluated Reports headache, vertigo, nausea and NBNB vomiting Denied any fevers, chills Reports abdominal pain that started yesterday with the vomiting. Denied cough, sorethroat, shortness of breath, chest pain Review of Systems Review of Systems: All systems reviewed and unremarkable except for mentioned above. Physical Exam Constitutional: well developed Eyes: PERRL, conjunctivae normal, anicteric sclerae ENMT: external ear and nose normal, oropharynx normal Neck: trachea midline, no thyromegaly Respiratory: normal respiratory effort, lungs clear to auscultation Cardiovascular: RRR, no murmur, no edema Gastrointestinal (Abdomen): normal bowel sounds, soft, nontender, no hepatosplenomegaly Musculoskeletal: no cyanosis or clubbing, extremities motor strength 5/5 Neurologic: moves all extremities; no focal motor deficits Limited exam as patient reports moving worsens the vertiginous spells Psychiatric: Orientation: alert and oriented x 3 Speech: normal rate/rhythm/volume of speech Affect: + anxious affect Results & Data Vital Signs (Past 12 Hours) Vital Signs Temp Pulse Pulse Resp BP BP Pulse Ox 08/02/19 04:00 36.5 C 84 20 147/89 H 08/02/19 01:06 36.6 C 102 H 18 176/72 H 93 08/02/19 00:29 84 08/01/19 21:20 36.3 C L 81 20 175/81 H 99
[2019-08-02] MEDS: KETOROLAC TROMETHAMINE 15 MG/ML VIAL IV PRN (16:58)
[2019-08-02] MEDS: ENOXAPARIN INJ 40 MG/0.4 ML SYR SQ SCH (20:45)
[2019-08-02] MEDS: CETIRIZINE HCL 10 MG TABLET PO SCH (20:45)
[2019-08-02] MEDS: NORTRIPTYLINE HCL 10 MG CAP PO SCH (20:45)
[2019-08-03] MEDS: SODIUM CHLORIDE 0.9% 1000ML 1,000 ML IV SCH ×2 (02:09→11:22)
[2019-08-03 05:42] LABS: Hemoglobin 14.1 g/dL (14.0-18.0); Mean Corpuscular Hemoglobin 30.2 pg (25-34); Mean Corpuscular Hgb Conc 34.4 g/dL (32-36); Mean Corpuscular Volume 87.8 fL (80-100); Mean Platelet Volume 9.8 fL (7.4-10.4); Platelet Count 214 K/uL (130-400); RDW Coefficient of Variation 13.8 % (11.5-14.5); RDW Standard Deviation 44.4 fL (36.4-46.3); Red Blood Count 4.67 M/uL (4.7-6.1); White Blood Count 8.04 K/uL (4.8-10.8)
[2019-08-03 06:26] LABS: BUN Creatinine Ratio 16.4 (10-20); Calcium 7.9 mg/dl (8.5-10.1); Creatinine Clr Calc Pharmacy 74.6 ml/min; Est GFR (African American) 96.6; Est GFR (Non-African American) 83.4
[2019-08-03] MEDS: BuPROPion SR 100 MG TABCR PO SCH ×2 (08:06→21:36)
[2019-08-03] MEDS: PANTOprazole 40 MG TAB PO SCH (08:06)
[2019-08-03] MEDS: GABAPENTIN 600 MG TAB PO SCH ×3 (08:06→21:37)
[2019-08-03] MEDS: MONTELUKAST SODIUM 10 MG TABLET PO SCH (08:06)
[2019-08-03] MEDS: LOSARTAN POTASSIUM 50 MG TAB PO SCH (08:07)
[2019-08-03] MEDS: FLUTICASONE HFA 110MCG INHALER INH SCH ×2 (08:07→21:33)
[2019-08-03] MEDS: DICYCLOMINE HCL 20 MG TAB PO SCH ×3 (08:07→21:35)
[2019-08-03] MEDS: FINASTERIDE 5 MG TAB PO SCH (08:07)
--- NOTE | 2019-08-03 08:46 | Hospitalist Progress Note ---
Date of Service August 03, 2019 Assessment & Plan (1) Vertigo: Sudden onset after dental procedure Head CT, head CTA, neck CTA all negative for acute neurological findings Differentials include BPPV, ?vestibular migraine Continue supportive care with IVF, PRN meclizine, antiemetics Patient declined PT eval yesterday due to symptoms at the time. I explained to him the need for the eval and Aly maneuver. will get that today Will appreciate Neuro evaluation and recommendations (2) Pulmonary nodules: Incidental finding on neck CTA Will need outpatient follow-up chest CT in 6 months (3) Thyroid nodule: Incidental finding on neck CTA History of left thyroid nodule in 2011, S/P biopsy showing benign nodular goiter TSH 4.2 Outpatient follow-up (4) Bronchiectasis: Stable No acute exacerbation Continue home inhalers (5) Hypertension: BP has been poorly controlled Likely due to pain. Optimizing pain control Increased losartan dose today to 50mg. Will monitor for now (6) Anxiety: Continue home meds (7) DVT prophylaxis: SQ Lovenox Subjective Patient seen and evaluated. He stated he felt better overnight and slept better. However, this morning on sitting up to take his pills, the dizziness/vertigo with nausea and headaches started again. Patient stated he feels "dizzy and could not exactly describe the feeling" Denied any sorethroat, cough, shortness of breath or chest pain. Review of Systems Review of Systems: All systems reviewed and unremarkable except for mentioned above. Physical Exam Constitutional: well developed and well nourished; no acute distress Eyes: PERRL, conjunctivae normal, anicteric sclerae ENMT: external ear and nose normal, oropharynx normal Neck: trachea midline, no thyromegaly Respiratory: normal respiratory effort, lungs clear to auscultation Cardiovascular: RRR, no murmur, no edema Extremities: no edema Gastrointestinal (Abdomen): normal bowel sounds, soft, nontender, no hepatosplenomegaly Musculoskeletal: no cyanosis or clubbing, extremities motor strength 5/5 Neurologic: PERRL, EOMI, accommodation nl, no face palsy, no dysarthria Psychiatric: A+Ox3, euthymic affect Results & Data Vital Signs (Past 12 Hours) Vital Signs Temp Pulse Pulse Resp BP BP Pulse Ox 08/03/19 08:22 36.7 C 85 18 157/86 H 95 08/03/19 07:12 101 H 08/03/19 04:23 36.5 C 87 18 164/85 H 95 08/03/19 01:07 83 08/02/19 23:40 36.6 C 92 H 19 163/94 H 97 Laboratory Results Short CBC 08/03/19 Range/Units 05:23 WBC 8.04 (4.8-10.8) K/uL Hgb 14.1 (14.0-18.0) g/dL Hct 41.0 L (42-52) % Plt Count 214 (130-400) K/uL BMP 08/03/19 05:23 Sodium 137 Potassium 4.0 Chloride 109 H Carbon Dioxide 23 BUN 15 Creatinine 0.92 Glucose 95 Calcium 7.9 L
[2019-08-03] MEDS: PROMETHAZINE HCL 12.5 MG in SODIUM CHLORIDE 0.9% 50 ML IV PRN (11:23)
[2019-08-03] MEDS: KETOROLAC TROMETHAMINE 15 MG/ML VIAL IV PRN (11:23)
--- NOTE | 2019-08-03 14:45 | Neurology Consultation ---
Date of Consultation August 03, 2019 Assessment & Plan (1) Vertigo: 1. CT head- no acute findings 2. PT- Maya has improved symptoms 3. headache- continue nortriptyline 30 mg hs 4. antivert - prn for vertigo 5. CTA- no new vascular issues- lung nodules f/u imaging recommended 6. MRI was done in 12/2018- may need repeated if stroke r/o is needed 7. follow up with Dr Proctor as scheduled. Supervising Physician Co-Signing Physician Notes Patient was seen and examined. Agree with Nohelia Espino PA-C as noted below. A 69 year old male with history of chronic headaches admitted on Tuesday for acute vertigo / dysequilibrium. Denies any history of similar symptoms. Symptoms were severe with nausea and difficulty walking. Reports symptoms improved today with PT. Denies history of stroke or [place]. On examine he is able to stand with feet together. Pupils symmetric and reactive. Speech is clear. Mild ataxia with finger to nose on the left. CTA head and neck reviewed. No high grade stenosis or LVO. CT head negative. - Symptoms improved today. Improved with PT / maya maneuver suggestive of probable peripheral etiology. - On examine he does have some mild ataxia with finger to nose on the left. - Recommend MRI brain without contrast to evaluate for posterior circulation ischemic stroke. If MRI brain is Negative for acute/subacute ischemics stroke then Ok to discharge from neurology standpoint. Discussed with patient and agreed to plan of care. History of Present Illness Reason for Consultation: vertigo Requesting Physician: Abi Camargo MD Attending Physician: Abi Camargo MD History of Present Illness Rod is a 69 year old male who presents the ED for evaluation of dizziness. He was at the dentist office for a root canal. He sat up in the chair after the procedure, he had sudden onset of severe dizziness and lightheadedness. No syncopal event. He had nausea but no vomiting. EMS was called and he was brought to the ED for further evaluation. He also has a headache however he does had a history of chronic headaches and see Dr Proctor in our office. In the last week he also had some episode of spinning when rolling in bed but they only lasted several seconds. He last saw Dr Proctor 06/13/2019 for chronic tension headache. He had an MRI brain with and without 12/2018 with no acute findings. denies head trauma, CP, SOB, abdominal pain, one side weakness, numbness tingling, vision changes, one sided hearing loss, tinnitus, vomiting, +N, +headache. Allergies Allergy/AdvReac Type Severity Reaction Status Date / Time cyclobenzaprine Allergy Unknown COULD NOT Verified 08/01/19 15:10 URINATE amoxicillin AdvReac Unknown CAUSED Verified 08/01/19 15:10 C-DIFF atenolol AdvReac Unknown GI UPSET Verified 08/01/19 15:10 citalopram AdvReac Unknown GI UPSET Verified 08/01/19 15:10 clavulanic acid AdvReac Unknown CAUSED Verified 08/01/19 15:10 C-DIFF doxycycline AdvReac Unknown GI UPSET Verified 08/01/19 15:10 levofloxacin AdvReac Unknown GI UPSET Verified 08/01/19 15:10 lisinopril AdvReac Unknown COUGH Verified 08/01/19 15:10 trazodone AdvReac Unknown GI UPSET Verified 08/01/19 15:10 Home Medications Home Medications Medication Instructions Recorded Confirmed Type Midrin 1 tab PO UD PRN 08/01/19 08/01/19 History albuterol sulfate [Ventolin HFA] 2 puff INHALATION Q4 PRN 08/01/19 08/01/19 History alprazolam [Xanax] 0.5 mg PO BID PRN 08/01/19 08/01/19 History bupropion HCl [Wellbutrin SR] 100 mg PO BID 08/01/19 08/01/19 History cetirizine [Zyrtec] 20 mg PO HS 08/01/19 08/01/19 History dicyclomine 20 mg PO TID 08/01/19 08/01/19 History finasteride [Proscar] 5 mg PO DAILY 08/01/19 08/01/19 History fluticasone propionate [Flonase 2 spray INTRANASAL DAILY 08/01/19 08/01/19 History Allergy Relief] fluticasone propionate [Flovent 1 puff INHALATION BID 08/01/19 08/01/19 History HFA] gabapentin 600 mg PO TID 08/01/19 08/01/19 History losartan [Cozaar] 25 mg PO DAILY 08/01/19 08/01/19 History montelukast [Singulair] 10 mg PO DAILY 08/01/19 08/01/19 History nortriptyline [Pamelor] 30 mg PO HS 08/01/19 08/01/19 History pantoprazole [Protonix] 40 mg PO DAILY 08/01/19 08/01/19 History penicillin V potassium 500 mg PO QID 08/01/19 08/01/19 History ranitidine HCl [Zantac] 150 mg PO BID 08/01/19 08/01/19 History triamcinolone acetonide 1 applic TOPICAL BID PRN 08/01/19 08/01/19 History zoledronic ldnx-[id number]-vkrex 0 mg IV YEARLY 08/01/19 08/01/19 History [Reclast] Patient History Medical History Chronic tension headache (Chronic) 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 difficile colitis (Resolved) Thyroid tumor, benign (Chronic) Herniated disc (Chronic) Anxiety (Chronic) Urticarial dermatitis (Chronic) Hypertension (Chronic) Osteoporosis (Chronic) Barretts esophagus (Chronic) Chronic abdominal pain (Chronic) Family History Son Trigeminal neuralgia Social History Preferred Language: Martiniquais Drier Unloader Required: No Beliefs That Will Affect Care: None Current Living Situation: Alone Other Information That Helps Us Care for You: No Feels Safe at Home: Yes Safety Concerns: Feels Safe At This Time Smoking Status: Former smoker Do You Dip or Chew Tobacco: No ; Second Hand Exposure: Yes ; Tobacco Cessation Education Requested by Patient: No Hx Alcohol Use: No Hx Substance Use: No Physical Exam Physical Exam: Physical Exam: Constitutional: appearance nourished, healthy and normal Ears, Nose, Mouth and Throat: mucous membranes moist, no injection and skin normal, eyes normal Cardiovascular: normal S-1 and S-2 and regular rate and rhythm Respiratory: course breath sounds Musculoskeletal: no peripheral edema and good distal pulses Skin: no stigmata of neurocutaneous disease noted and normal and intact Eyes: extraocular muscles intact (EOMI) and pupils equal, round and reactive to light (PERRL) NEUROLOGIC EXAMINATION: Mental status: Alert and interactive Oriented to full date and location Oriented to person Speech fluent with no evidence of aphasia Cranial Nerves smile eye brow raises symmetric Reflexes: Deep tendon reflexes were symmetrical and graded 2/5. Sensory: intact to vibration, cool, light touch Coordination: finger to nose, heel to savage Gait/Stance: Posture normal. Gait : tandem gait. Motor: Negative for pronator drift of out stretched arms with eyes closed. Strength: hand dry chain offbearer, biceps triceps 5/5 bilaterally, hip flex /planter flex ext 5/5 Results & Data Vital Signs (Past 12 Hours) Vital Signs Temp Pulse Pulse Resp BP Pulse Ox 08/03/19 12:42 36.9 C 83 18 147/83 H 97 08/03/19 08:22 36.7 C 85 18 157/86 H 95 08/03/19 07:12 101 H 08/03/19 04:23 36.5 C 87 18 164/85 H 95 Laboratory Results Abnormal lab results 08/03/19 08/03/19 Range/Units 05:23 05:23 RBC 4.67 L (4.7-6.1) M/uL Hct 41.0 L (42-52) % Chloride 109 H (98-107) mmol/L Calcium 7.9 L (8.5-10.1) mg/dl Diagnostic Findings CXR- Nonspecific clustered right upper lung zone nodules. In the absence of prior radiographs, CT scanning should be considered in follow-up. CT head- no acute finding CTA head- No significant stenosis, occlusion, or aneurysm within the [place]. CTA neck-No significant stenosis, occlusion, or dissection identified within the carotid or vertebral arteries. There are similar-appearing heterogeneous nodules inferior to the bilateral thyroid lobes with the largest on the left measuring 12 mm. The right nodule measures 5 mm. These favor exophytic thyroid nodules. Parathyroid adenomas could also have a similar appearance. Multiple nodular densities within the right upper lobe with the largest measuring 8 mm. Some of these demonstrate a small amount of calcification. These favor chronic granulomatous disease. However, [address] follow-up recommended to ensure stability.
[2019-08-03] MEDS: MECLIZINE HCL 25 MG TAB PO PRN (14:55)
--- NOTE | 2019-08-03 20:15 | Magnetic Resonance Report ---
MRI OF THE BRAIN WITHOUT CONTRAST CLINICAL HISTORY: Vertigo, new onset, Dizziness COMPARISON STUDY: Head CT and CTA of the head August 01, 2019. TECHNIQUE: Utilizing a 1.5 Melinda magnet and dedicated coil, multiplanar, multiecho imaging of the bra in was performed without IV contrast. FINDINGS: There are no foci of restricted diffusion to suggest acute infarct. No acute intracranial h emorrhage is present. Mild atrophy is noted. There is minimal small vessel disease. There are no extr a axial collections. Note is made of a 5 mm T2 hypointense focus anterior to the cord at the C1 level shown on axial T2 image of . This slightly indents the cord. No additional intracranial lesions are present. There is no mastoid fluid. No cerebellopontine angle masses are identified on this unenh anced exam. Internal artery canals are suboptimally assessed on this exam but are grossly normal. Sin uses are unremarkable. IMPRESSION: 1. No acute intracranial findings. 2. Small 5 mm T2 hypointense focus within the foramen magnum which slightly indents the ventral aspec t of the cervical cord at the C1 level. This likely reflects a tiny meningioma. An MRI in 6 months to ensure stability is recommended. Electronically signed by: Fabián Pereira M.D. 08/03/2019 8:13 PM
[2019-08-03] MEDS: CETIRIZINE HCL 10 MG TABLET PO SCH (21:34)
[2019-08-03] MEDS: NORTRIPTYLINE HCL 10 MG CAP PO SCH (21:35)
[2019-08-03] MEDS: ENOXAPARIN INJ 40 MG/0.4 ML SYR SQ SCH (21:37)
[2019-08-04] MEDS: SODIUM CHLORIDE 0.9% 1000ML 1,000 ML IV SCH ×2 (00:38→12:23)
[2019-08-04] MEDS: MONTELUKAST SODIUM 10 MG TABLET PO SCH (08:05)
[2019-08-04] MEDS: PANTOprazole 40 MG TAB PO SCH (08:05)
[2019-08-04] MEDS: FINASTERIDE 5 MG TAB PO SCH (08:05)
[2019-08-04] MEDS: LOSARTAN POTASSIUM 50 MG TAB PO SCH (08:05)
[2019-08-04] MEDS: GABAPENTIN 600 MG TAB PO SCH (08:05)
[2019-08-04] MEDS: DICYCLOMINE HCL 20 MG TAB PO SCH (08:05)
[2019-08-04] MEDS: BuPROPion SR 100 MG TABCR PO SCH (08:05)
[2019-08-04] MEDS: FLUTICASONE HFA 110MCG INHALER INH SCH (08:07)
[2019-08-04] MEDS ORDERED: MECLIZINE HCL 25MG HOME PACK PO PRN ×2 (08:56→11:37)
--- NOTE | 2019-08-04 09:16 | Discharge Summary ---
Date of Service August 04, 2019 Admission HPI Per Admitting Provider 69-year-old male who presents the ED for evaluation of dizziness. Patient was at the dentist office today having a root canal performed and when he sat up in the chair after the procedure, he had sudden onset of severe dizziness and lightheadedness. No syncopal event. He had associated nausea but no vomiting. EMS was called and patient was brought to the ED for further evaluation. Patient reports an associated headache however reports history of chronic headaches. No blurred vision or double vision. Denies any unilateral weakness, numbness, tingling. Reports he otherwise has been feeling well recently. No chest pain or shortness of breath. Denies abdominal pain and diarrhea. No other recent illnesses, fevers, chills. He denies any urinary symptoms. In the ED, head CT, head CTA, neck CTA were all negative for acute findings. Labs are unremarkable. Patient was given IVF, IV Zofran, IV diazepam and continues to have persistent symptoms. Admission Exam Per Admitting Provider Constitutional: WD/WN, vitals as above Eyes: PERRL, conjunctivae normal, anicteric sclerae ENMT: external ear and nose normal, oropharynx normal Respiratory: normal respiratory effort, lungs clear to auscultation Cardiovascular: Rate/Rhythm: regular rate and regular rhythm Vessels: normal peripheral pulses Extremities: no edema Gastrointestinal (Abdomen): normal bowel sounds, soft, nontender, no hepatosplenomegaly Musculoskeletal: no cyanosis or clubbing, extremities motor strength 5/5 Skin: no rashes, warm and dry Neurologic: PERRL, EOMI, accommodation nl, no face palsy, no dysarthria Cranial Nerves: no nystagmus Psychiatric: Orientation: alert and oriented x 3 Affect: + anxious affect Principal Diagnosis Vertigo likely due to BPPV (Benign Paroxysmal Positional Vertigo) Hypertension Discharge Exam Constitutional well developed and well nourished; no acute distress and not ill appearing Eyes PERRL, conjunctivae normal, anicteric sclerae ENMT external ear and nose normal, oropharynx normal Neck trachea midline, no thyromegaly Respiratory normal respiratory effort, lungs clear to auscultation Cardiovascular RRR, no murmur, no edema Gastrointestinal (Abdomen) normal bowel sounds, soft, nontender, no hepatosplenomegaly Neurologic PERRL, EOMI, accommodation nl, no face palsy, no dysarthria Normal gait without support Psychiatric A+Ox3, euthymic affect Discharge Data Allergies Allergy/AdvReac Type Severity Reaction Status Date / Time cyclobenzaprine Allergy Unknown COULD NOT Verified 08/01/19 15:10 URINATE amoxicillin AdvReac Unknown CAUSED Verified 08/01/19 15:10 C-DIFF atenolol AdvReac Unknown GI UPSET Verified 08/01/19 15:10 citalopram AdvReac Unknown GI UPSET Verified 08/01/19 15:10 clavulanic acid AdvReac Unknown CAUSED Verified 08/01/19 15:10 C-DIFF doxycycline AdvReac Unknown GI UPSET Verified 08/01/19 15:10 levofloxacin AdvReac Unknown GI UPSET Verified 08/01/19 15:10 lisinopril AdvReac Unknown COUGH Verified 08/01/19 15:10 trazodone AdvReac Unknown GI UPSET Verified 08/01/19 15:10 Consultations 08/01/19 17:29 ED Decision to Admit Stat 08/03/19 08:37 Consult Neurology Routine Ordered Studies 08/01/19 14:27 CT angio head w con Stat No significant stenosis, occlusion, or aneurysm within the [place] angio neck with con Stat 1. No significant stenosis, occlusion, or dissection identified within the carotid or vertebral arteries. 2. . There are similar-appearing heterogeneous nodules inferior to the bilateral thyroid lobes with the largest on the left measuring 12 mm. The right nodule measures 5 mm. These favor exophytic thyroid nodules. Parathyroid adenomas could also have a similar appearance. 3. Multiple nodular densities within the right upper lobe with the largest measuring 8 mm. Some of these demonstrate a small amount of calcification. These favor chronic granulomatous disease. However, [address] follow-up recommended to ensure stability. CT head/brain wo con Stat No acute intracranial abnormality. 08/03/19 16:18 MR brain wo con Urgent 1. No acute intracranial findings. 2. Small 5 mm T2 hypointense focus within the foramen magnum which slightly indents the ventral aspect of the cervical cord at the C1 level. This likely reflects a tiny meningioma. An MRI in 6 months to ensure stability is recommended. Hospital Course (1) Vertigo: Sudden onset after dental procedure Head CT, head CTA, neck CTA all negative for acute neurological findings MRI brain w/o contrast did not show any acute findings. Showed small hypointense focus within foramen magnum which was present and unchanged in previous MRI some months ago Vertigo likely due to BPPV Significant improvement after maya yesterday Currently patient has no symptom. Reports he feels better and has milder dizzin ess less frequently when he gets out of bed too fast and these episodes do not last long when it happens PT note from yesterday recommended some rehab. However, patient has improved significantly from yesterday, ambulating without support. I offered him to make arrangements for rehab but he declined. Discussed with catalytic case operator about setting up home health services. Advised not to drive until symptoms have completely resolved Will discharge home today on prn meclizine. Patient follows with Dr Das, Neurologist outpatient Follow up with PCP (2) Pulmonary nodules: Incidental finding on neck CTA Will need outpatient follow-up chest CT in 6 months (3) Thyroid nodule: Incidental finding on neck CTA History of left thyroid nodule in 2011, S/P biopsy showing benign nodular goiter TSH 4.2 Outpatient follow-up (4) Bronchiectasis: Stable No acute exacerbation Continue home inhalers (5) Hypertension: BP has been poorly controlled Losartan dose was increased to 50mg daily yesterday. Educated patient to monitor at home and to follow up with PCP for outpatient management (6) Anxiety: Continue home meds Total Time Total Time Spent Total Time Spent (In Minutes): 25 Total Time Includes: Examination of the Patient, Discharge Planning and Medication Reconciliation Discharge Plan Discharge Items Patient Disposition: Home - Self-Care Reason For Visit: VERTIGO Discharge Diagnosis: Vertigo Condition on Discharge: Good Activity: Resume your previous activity Driving/Machine Use: Do not drive or use heavy machinery for now until symptoms are completely resolved Non-emergency contact: Primary Care Provider Call non-emergency contact if: you have any medication questions Follow-up/Referrals: Quentin Best MD [Primary Care Provider] - Diet: Heart Healthy Addtl Attending Provider Instructions: Mr Hinojosa. You came to the hospital with dizziness, vertigo, nausea and vomiting after a dental procedure. You were evaluated and started on medications to help with this. You also had maya maneuver with significant improvement of your symptoms. Your vertigo is likely due to BPPV (Benign Paroxysmal Positional Vertigo). You also had scans (CT and MRI brain) which did not show any new findings. During your hospitalization, due to poorly controlled hypertension, your losartan was increased to 50mg daily. Please follow up with your Primary Doctor for continued management and follow up. You can take meclizine three times a day as needed for the dizziness. Follow up with your Neurologist. It was a pleasure taking care of you. Pending Studies at Discharge: No Stand-Alone Forms: My [facility] VAZATA, Smoking Cessation Medications and DC Order Prescriptions: New meclizine 25 mg Tablet 25 mg PO TID PRN (Reason: dizziness) 30 Days Qty: 90 RF: 0 Continued gabapentin 600 mg tablet 600 mg PO TID RF: 0 cetirizine [Zyrtec] 10 mg Tablet 20 mg PO HS RF: 0 triamcinolone acetonide 0.1 % cream 1 applic topical BID PRN (Reason: FLARE UPS) RF: 0 bupropion HCl [Wellbutrin SR] 100 mg tablet sustained-release 12 hr 100 mg PO BID RF: 0 dicyclomine 20 mg tablet 20 mg PO TID RF: 0 pantoprazole [Protonix] 40 mg tablet,delayed release (DR/EC) 40 mg PO DAILY RF: 0 ranitidine HCl [Zantac] 150 mg tablet 150 mg PO BID RF: 0 montelukast [Singulair] 10 mg tablet 10 mg PO DAILY RF: 0 albuterol sulfate [Ventolin HFA] 90 mcg/actuation HFA aerosol inhaler 2 puff inhalation Q4 PRN (Reason: Shortness Of Breath Or Wheezing) RF: 0 fluticasone propionate [Flonase Allergy Relief] 50 mcg/actuation [place],Tasha pension 2 spray INTRANASAL DAILY RF: 0 finasteride [Proscar] 5 mg tablet 5 mg PO DAILY RF: 0 Midrin 1 tab PO UD PRN (Reason: Headache) RF: 0 nortriptyline [Pamelor] 10 mg capsule 30 mg PO HS RF: 0 zoledronic [id number]-yiitm [Reclast] 5 mg/100 mL Piggyback IV YEARLY RF: 0 alprazolam [Xanax] 0.5 mg tablet 0.5 mg PO BID PRN (Reason: Anxiety) RF: 0 Flovent HFA 110 mcg/actuation Hfa Aerosol Inhaler 1 puff INHALATION BID RF: 0 Changed losartan [Cozaar] 25 mg tablet 50 mg PO DAILY 30 Days Qty: 60 RF: 0 Discontinued penicillin V potassium 500 mg tablet 500 mg PO QID RF: 0 Discharge Orders: Discharge Order (Routine); Ordered 08/04/19 Ordered By: Abi Camargo Admission Data Admit Date/Time: 08/03/19 16:18 Attending Provider: Abi Camargo I. Admit Provider: Edmundo Vásquez Primary Care Provider: Quentin Best I. Other Providers: Edmundo Vásquez ; Giovani Subramanian Other Interventions: Discharge Summary Assessment (RN) Last Done: 08/04/19 11:51 DC Date/Time DO NOT enter until pt leaves facility: 08/04/19 12:28
== END 2019-08-04 12:28 | disposition home health service (06) | DRG 149 ==
LOC: 2N 14:08 → ED 14:08 → SUATTDRO 18:05 → 2N 20:37